=== PATIENT | female | born 1990 | race Caucasian/White ===

== ENCOUNTER 2018-03-14 13:36 | Emergency (ER) | payer MEDICAID ==
[~2018-03-14] VITALS: Ht 162.6 cm; Wt 73.0 kg
[2018-03-14] MEDS ORDERED: KETOROLAC 30MG/ML VIAL IV ONE (18:45)
[2018-03-14 19:05] LABS: BASOPHILS % 0.4 % (0.0-2.0); EOSINOPHILS % 1.1 % (0.0-5.0); HEMATOCRIT. 42.3 % (36.0-48.0); HEMOGLOBIN. 14.3 g/dL (12.0-16.0); LYMPHOCYTES % 22.3 % (20.0-50.0); MEAN CORPUSCULAR HEMOGLOBIN 31.6 pg (28.0-32.0); MEAN CORPUSCULAR VOLUME 93.3 fL (81.0-99.0); MEAN PLATELET VOLUME 7.5 fl (7.4-10.4); MONOCYTES % 9.8 % (2.0-8.0); NEUTROPHILS % 66.4 % (40.0-76.0); PLATELET 332 x1000/uL (130-400); RED BLOOD CELL COUNT 4.54 mill/uL (4.2-5.4); RED CELL DISTRIBUTION WIDTH 13.2 % (11.6-14.6)
[2018-03-14 19:10] LABS: CHLORIDE 106 mEq/L (98-107)
[2018-03-14] MEDS ORDERED: HYDROCODONE/ACETAMINOPHEN 5/325MG TABLET PO ONE (20:30)
[2018-03-14] MEDS ORDERED: IOHEXOL-300 100 ML BOTTLE ONE (20:41)
[2018-03-14] MEDS ORDERED: HYDROCODONE/ACETAMINOPHEN 5/325MG TABLET PO NR (22:00)
[2018-03-14 22:31] VITALS: BP 112/76
== END 2018-03-14 22:35 | disposition home or self-care (01) ==
LOC: ER 13:36
DX: I88.9 Nonspecific lymphadenitis, unspecified (principal); F17.200 Nicotine dependence, unspecified, uncomplicated
CPT/HCPCS: 36415; 70491; 80048; 81025; 85025; 96374; 99285; J1885; Q9967

== ENCOUNTER 2018-12-06 15:03 | Emergency (ER) | payer MEDICAID ==
[~2018-12-06] VITALS: Ht 162.6 cm; Wt 86.0 kg
[2018-12-06] MEDS ORDERED: ALPRAZOLAM 0.5 MG TABLET PO ONE ×2 (19:30→20:15)
[2018-12-06 20:24] VITALS: BP 144/93
== END 2018-12-06 20:35 | disposition home or self-care (01) ==
LOC: ER 15:03
DX: F41.9 Anxiety disorder, unspecified (principal); M79.18 Myalgia, other site; G43.909 Migraine, unspecified, not intractable, without status migrainosus; F17.210 Nicotine dependence, cigarettes, uncomplicated; R19.7 Diarrhea, unspecified; R11.2 Nausea with vomiting, unspecified; R53.1 Weakness
CPT/HCPCS: 99284; 99406

== ENCOUNTER 2019-02-21 14:23 | Emergency (ER) | payer MEDICAID, MEDICARE ==
[~2019-02-21] VITALS: Ht 162.6 cm; Wt 87.0 kg
[2019-02-21] MEDS ORDERED: TRAMADOL 50MG TABLET PO ONE (16:30)
[2019-02-21 16:32] VITALS: BP 130/80
== END 2019-02-21 18:15 | disposition home or self-care (01) ==
LOC: ER 14:23
DX: S92.592A Other fracture of left lesser toe(s), initial encounter for closed fracture (principal); F41.9 Anxiety disorder, unspecified; G43.909 Migraine, unspecified, not intractable, without status migrainosus; W22.8XXA Striking against or struck by other objects, initial encounter; Y93.89 Activity, other specified; Y92.89 Other specified places as the place of occurrence of the external cause; Y99.8 Other external cause status
CPT/HCPCS: 73630; 81025; 99283; Z7610

== ENCOUNTER 2019-02-23 13:17 | Emergency (ER) | payer MEDICAID ==
[~2019-02-23] VITALS: Ht 162.6 cm; Wt 100.0 kg
[2019-02-23] MEDS ORDERED: KETOROLAC 30MG/ML VIAL IM ONE (15:15)
[2019-02-23 15:44] VITALS: BP 128/92
== END 2019-02-23 15:49 | disposition home or self-care (01) ==
LOC: ER 13:58
DX: M79.675 Pain in left toe(s) (principal); F17.200 Nicotine dependence, unspecified, uncomplicated
CPT/HCPCS: 96372; 99283; J1885